=== PATIENT | female | born 1950 | race Caucasian/White ===

== ENCOUNTER 2021-09-18 11:11 | Day surgery (SDC) | payer BC ==
[2021-09-18] MEDS ORDERED: Xylocaine 1% Vial 30 ML PF IJ ONE (11:12)
[2021-09-18] MEDS ORDERED: Decadron 4 MG INJ IV ONE (11:12)
[2021-09-18] MEDS ORDERED: Lactated Ringers 1,000 ML IV ONE (12:30)
--- NOTE | 2021-09-18 14:02 | XRAY ---
Indication: Left C2-C4 MBB. Intraoperative fluoroscopy provided for 16 seconds. 2 digital spot images submitted for interpretation demonstrates posterior needle tips projecting over the expected left C2-C4 nerve roots. Correlate with intraoperative findings/report.
--- NOTE | 2021-09-18 14:54 | XRAY ---
16 seconds fluoroscopy time in surgery for left C2-C4 MBB.
== END 2021-09-18 13:15 | disposition home or self-care (01) ==
LOC: SDC-PAIN 11:11
PROVIDERS: ATTEND Psychiatry & Neurology Pain Medicine
DX: M47.812 Spondylosis without myelopathy or radiculopathy, cervical region (principal); Z79.899 Other long term (current) drug therapy
CPT/HCPCS: 64490; 64491; 72040; 77002; J1100; J2001

== ENCOUNTER 2021-10-09 12:33 | Day surgery (SDC) | payer BC ==
[2021-10-09] MEDS ORDERED: Marcaine Mpf 0.5% Vial 30 Ml IJ ONE (12:34)
[2021-10-09] MEDS ORDERED: TRANDATE 20 MG/4 ML SYRINGE IV ONE (13:01)
[2021-10-09] MEDS ORDERED: DIPRIVAN 200 MG/20 ML IV ONE (13:46)
[2021-10-09] MEDS ORDERED: Xylocaine-Mpf 2% 5 Ml Vial ONE (13:54)
--- NOTE | 2021-10-09 14:55 | XRAY ---
Indication: Left C2-C4 MBB. Intraoperative fluoroscopy provided for 24 seconds. 2 digital spot images submitted for interpretation demonstrates posterior needle tips projecting over the expected left C2-C4 nerve roots. Correlate with intraoperative findings/report.
[2021-10-09] MEDS ORDERED: Lactated Ringers 1,000 ML IV ONE (15:13)
--- NOTE | 2021-10-09 15:16 | XRAY ---
24 seconds fluoroscopy time in surgery for left C2-C4 MBB.
== END 2021-10-09 14:20 | disposition home or self-care (01) ==
LOC: SDC-PAIN 12:33
PROVIDERS: ATTEND Psychiatry & Neurology Pain Medicine
DX: M47.812 Spondylosis without myelopathy or radiculopathy, cervical region (principal); Z79.899 Other long term (current) drug therapy
CPT/HCPCS: 64490; 64491; 72040; 77002; J2704